=== PATIENT | female | born 2000 | race Caucasian/White ===

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

== ENCOUNTER 2024-08-23 17:52 | Emergency (ER) | payer OTHER, SELFPAY ==
[2024-08-23 17:53] VITALS: BP 139/88; PULSE 83; RESP 16; TEMP 36.3; O2SAT 99; BMI 22.0
--- NOTE | 2024-08-23 18:15 | EDS_ITS ---
HPI History of Present Illness Chief Complaint: Laceration Detail of Chief Complaint: Laceration radial side left index finger and volar side left thumb Informant: patient Onset/Context/Timing Onset: Hours Mechanism/Context: Incised Location of pain/injuries: Left hand (Index finger and thumb) Current Severity: Mild Maximum Severity: Moderate Worsened by: Injury Relieved by: Pressure Associated Symptoms Associated Symptoms: Negative for Parasthesias, Weakness or Loss of function Narrative Narrative: Patient is a 24-year-old [id number] woman who presents from work because of laceration to the volar radial side of the left index finger over the middle phalanx and linear laceration into subcutaneous tissue volar side left thumb distal IP joint. Patient denies paresthesia, anesthesia or motor weakness. Patient's last tetanus shot was several days ago. She has no past medical history. She is on no medication. Tetanus Immunization: <5 years Prior similar symptoms: No Recent Illness/Hospitalization: No PFSH PFSH Home Medications ?Medication ?Instructions ?Recorded ?Last Taken ?Type estradiol-testosterone 2 mg-50 ea IM 10/09/21 Unknown History mg/mL intramuscular oil Allergy/AdvReac Type Severity Reaction Status Date / Time buspirone Allergy Severe Anaphylaxis Verified 08/23/24 17:53 Social History Smoking Status: Never smoker ROS ROS ED Integumentary Reports other Details: Laceration previously described. Neurologic Neurologic: Denies paresthesias or weakness Hematologic/Lymphatic Hematologic/Lymphatic: Denies easy bleeding or easy bruising EXAM Physical Exam Const Vital Signs: 08/23/24 17:53 Temperature 97.4 F L Temperature Source Temporal Pulse Rate 83 Respiratory Rate 16 Blood Pressure 139/88 H Blood Pressure Mean 105 Pulse Ox 99 Oxygen Delivery Method Room Air Positive well nourished and well developed Constitutional Narrative: Blood pressure slightly elevated. General Appearance ED: well developed and NAD HEENT HEENT Narrative: Normal cephalic head. Ears are normal. Nares are patent. atraumatic Eyes PERRL and EOMs intact bilaterally Neck full ROM Resp normal respiratory effort Cardio regular rhythm Rate: regular rate Extremity Negative for normal to inspection Extremity Narrative: Superficial laceration 2.0 cm radial volar surface of the left index finger over the middle phalanx. There is no laxity of the collateral ligaments of the PIP joint. The flexor and extensor mechanism are intact. Sensations intact. Capillary refill is normal. This will not require repair. There is also a 1.2 cm gaping laceration volar surface of the right thumb. Capillary fill is normal. Sensation is normal. Flexor mechanism is intact. Neuro oriented x3 and CN's II-XII intact bilaterally Sensorium / Orientation: alert Psych mental status grossly normal and thought process normal Skin Skin Narrative: Laceration previously described PROC Procedures Other Procedures Procedure(s): suture repair: Patient's had a digital and radial nerve block using 1% lidocaine without epinephrine. A total of 4 cc was infiltrated. Once patient had no sensation the wound was cleansed with normal saline. Using 5-0 Ethilon a total of 4 simple interrupted sutures was placed. Patient had good cosmesis and hemostasis. Patient was discharged home in stable and improved condition. MDM MDM MDM Narrative Medical decision making narrative: Plan is to anesthetize thumb and suture. Presume it will take 2-3 simple interrupted stitches. History & Record Review Additional record(s) reviewed:: Prior ED visit (Seen October 2021 for closed head injury by Dr. Kishore Hameed.) Discharge Plan Triage Chief Complaint: Laceration ED Provider: Sim Singer Dx/Rx/DC Orders Clinical Impression: Laceration of left thumb, Laceration of left index finger, Elevated blood- pressure reading without diagnosis of hypertension Prescriptions: No Action Depo II 2-50 mg/mL Oil IM Primary Care Provider: Maude Moody Referrals: Maude Moody, [Primary Care Provider] - 10 Day for suture removal Activity Restrictions/Additional Instructions: 1. Keep wound clean and dry for the next 48 to 72 hours. 2. Apply bacitracin ointment twice a day 3. If there is any concern for infection either see your doctor or return to the emergency Print Language: Armenian Disposition Disposition: Home, Self Care
[2024-08-23] MEDS: Lidocaine 1% (20 ml mdv) 20 ML Vial INFILT (18:26)
[2024-08-23 19:00] VITALS: BP 134/88; PULSE 75; RESP 16; TEMP 36.7; O2SAT 98
--- NOTE | 2024-08-23 19:19 | ED.RN ---
This RN was notified by Messi from [facility] that the patient is refusing the mandatory drug screen and is refusing to file the FROI. Messi educated the patient on the process of refusing the paperwork and drug screen. Upon discharging the patient, this RN also educated the patient on the process of refusing the filing through workmen's comp. This RN answered all questions and patient reassured understanding.
--- NOTE | 2024-08-23 19:39 | ED.RN ---
Before patient left the department, she states she changed her mind and now wants to file under workmans comp. Registration notified, ed physician notified. Messi with [employer] notified. 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
== END 2024-08-23 19:23 | disposition home or self-care (01) ==
PROVIDERS: Emergency Provider Emergency Medicine; Referring Provider Emergency Medicine; Visit Provider Emergency Medicine
DX: S61.211A Laceration without foreign body of left index finger without damage to nail, initial encounter (principal); S61.012A Laceration without foreign body of left thumb without damage to nail, initial encounter; R03.0 Elevated blood-pressure reading, without diagnosis of hypertension; X58.XXXA Exposure to other specified factors, initial encounter
CPT/HCPCS: 12001; 99283